=== PATIENT | male | born 1975 | race African-American/Black ===

== ENCOUNTER 2019-06-18 15:45 | Emergency (ER) | payer OTHER ==
[2019-06-18 16:32] VITALS: BP 124/82; PULSE 77; TEMP 97.2; BMI 32.4
--- NOTE | 2019-06-18 16:33 | PDOC ---
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
[2019-06-18] MEDS ORDERED: ERYTHROMYCIN 0.5% OPHTHALMIC OINTMENT 3.5 GM TUBE OU ONE (17:37)
[2019-06-18] MEDS ORDERED: ERYTHROMYCIN 0.5% OPHTHALMIC OINTMENT 3.5 GM TUBE ONE (17:40)
[2019-06-18] MEDS ORDERED: KETOROLAC TROMETHAMINE 30 MG/1 ML VIAL ONE (18:40)
[2019-06-18] MEDS ORDERED: KETOROLAC TROMETHAMINE 30 MG/1 ML VIAL IM ONE (18:40)
--- NOTE | 2019-06-18 18:46 | PDOC ---
History of Present Illness - General Chief Complaint: Cold Symptoms Stated Complaint: Cold Symptoms Time Seen by Provider: 06/18/19 16:28 History Source: Patient Exam Limitations: No Limitations - History of Present Illness Initial Comments: 06/18/19 18:41 43-year-old male with history of hypertension presents complaining of body aches , cough, subjective fever, chills, frontal headache and bilateral red eyes with itching x24 hours. 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 Denies shortness of breath, chest pain, abdominal pain, vomiting, diarrhea. Did not take any pain medication today. ROS: As above PE: GENERAL: well-appearing, NAD HEAD: NCAT EYES: Pupils equal, round and reactive to light, sclera anicteric, bilateral erythematous conjunctiva, clear discharge from bilateral eyes noted ENT: Bilateral normal ear canals, bilateral normal TMs, pharynx: no erythema, no exudate, uvula midline NECK: supple, no lymphadenopathy CHEST: nontender RESP: clear, no w/r/r CARDIO: rrr, no m/g/r ABD: +BS, soft, nontender, non distended BACK: no midline spinal ttp, no CVAT EXTREMITIES: Normal range of motion, no edema NEUROLOGICAL: Normal speech, normal gait SKIN: Warm, Dry Is this a multiple visit Asthma Patient?: No Past History - Past Medical History Allergies/Adverse Reactions: Allergies Allergy/AdvReac Type Severity Reaction Status Date / Time No Known Allergies Allergy Verified 06/18/19 16:29 Home Medications: Ambulatory Orders Erythromycin 0.5% Eye Ointment [Erythromycin 0.5% Eye Ointment -] 1 applic OU TID #1 tube 06/18/19 - Psycho Social/Smoking Cessation Hx Smoking Status: No Smoking History: Never smoked Number of Cigarettes Smoked Daily: 0 Information on smoking cessation initiated: No Hx Alcohol Use: No Drug/Substance Use Hx: No Substance Use Type: None Hx Substance Use Treatment: No *Physical Exam - Vital Signs Last Vital Signs Temp Pulse Resp BP Pulse Ox 97.2 F L 77 18 124/82 99 06/18/19 16:29 06/18/19 16:29 06/18/19 16:29 06/18/19 16:29 06/18/19 16:29 ED Treatment Course - Medications Given in the ED: ED Medications Discontinued Medications Generic Name Dose Route Start Last Admin Trade Name Freq PRN Reason Stop Dose Admin Erythromycin 1 applic 06/18/19 17:37 06/18/19 17:40 Erythromycin 0.5% Eye Ointment OU 06/18/19 17:38 1 applic ONCE ONE Administration Medical Decision Making - Medical Decision Making 06/18/19 18:43 43-year-old male with history of hypertension presents complaining of cough, subjective fever, chills, body aches, frontal headache, sore throat, bilateral redness to eyes x24 hours. Influenza swab negative IM Toradol 30 mg x 1 dose Note for work provided Discharge - Discharge Information Problems reviewed: Yes Clinical Impression/Diagnosis: URI (upper respiratory infection) Qualifiers: URI type: unspecified URI Qualified Code(s): J06.9 - Acute upper respiratory infection, unspecified Conjunctivitis Qualifiers: Conjunctivitis type: unspecified Laterality: bilateral Qualified Code(s): H10.9 - Unspecified conjunctivitis Condition: Stable Disposition: HOME - Admission No - Follow up/Referral Referrals: Narendra Wallace MD [Primary Care Provider] - - Patient Discharge Instructions Additional Instructions: Alternate between acetaminophen and ibuprofen every 6 hours Apply erythromycin ophthalmologic ointment to both eyes 3 times a day Follow-up with your primary care doctor Return to ED if chest pain, shortness of breath, vomiting, diarrhea or worsening symptoms - Post Discharge Activity Work/Back to School Note: Back to Work
== END 2019-06-18 18:47 | disposition home or self-care (01) ==
LOC: JERFT 15:45
PROC: 3E0233Z Introduction of Anti-inflammatory into Muscle, Percutaneous Approach (ICD-10-PCS; principal; 2019-06-18)
DX: J06.9 Acute upper respiratory infection, unspecified (principal); H10.33 Unspecified acute conjunctivitis, bilateral
CPT/HCPCS: 87804; 99284-25

== ENCOUNTER 2020-04-17 18:19 | Emergency (ER) | payer OTHER ==
[2020-04-17 18:43] VITALS: BP 129/74; PULSE 78; TEMP 98; BMI 32.5
[2020-04-17] MEDS ORDERED: ACETAMINOPHEN 500 MG TABLET (FP) PO ONE (19:50)
[2020-04-17] MEDS ORDERED: ACETAMINOPHEN 325 MG TABLET (FP) ONE (19:52)
== END 2020-04-17 20:52 | disposition home or self-care (01) ==
LOC: JER 18:19
DX: R51.9 Headache, unspecified (principal); H61.23 Impacted cerumen, bilateral
CPT/HCPCS: 93005; 93010; 99283-25

== ENCOUNTER 2020-12-27 07:13 | Emergency (ER) | payer OTHER ==
[2020-12-27 07:25] VITALS: BP 121/87; PULSE 62; TEMP 97.7; BMI 34.4
[2020-12-27] MEDS ORDERED: METOCLOPRAMIDE HCL INJECTION 10 MG/2 ML VIAL IVPB STA (07:50)
[2020-12-27] MEDS ORDERED: SODIUM CHLORIDE 1,000 ML IV ONE (07:50)
[2020-12-27] MEDS ORDERED: MECLIZINE HCL 25 MG TABLET (FP) PO ONE (07:52)
[2020-12-27] MEDS ORDERED: ACETAMINOPHEN 1000 MG/100 ML VIAL (NON FORMULARY) IVPB ONE (07:52)
[2020-12-27] MEDS ORDERED: ACETAMINOPHEN INJECTION 100 ML IVPB ONE (08:01)
[2020-12-27] MEDS ORDERED: METOCLOPRAMIDE HCL INJECTION 10 MG/2 ML VIAL ONE (08:01)
[2020-12-27] MEDS ORDERED: MECLIZINE HCL 25 MG TABLET (FP) ONE (08:01)
[2020-12-27 08:39] LABS: BASO % 0.7 % (0-2.0); EOS % 1.2 % (0-4.5); HEMATOCRIT 42.4 % (35.4-49); HEMOGLOBIN 14.8 GM/dL (11.7-16.9); LYMPH % 35.6 % (8-40); MCH 30.2 pg (25.7-33.7); MCHC 34.8 g/dl (32.0-35.9); MEAN CELL VOLUME 86.6 fl (80-96); MEAN PLT VOLUME 7.6 fl (7.5-11.1); MONO % 9.1 % (3.8-10.2); NEUT % 53.4 % (42.8-82.8); PLATELET COUNT 263 10^3/uL (134-434); RBC 4.89 M/mm3 (4.00-5.60); RDW 14.2 % (11.9-15.9); WHITE BLOOD COUNT 4.2 K/mm3 (4.0-10.0)
[2020-12-27 09:00] LABS: ALBUMIN 3.8 g/dl (3.4-5.0); BLOOD UREA NITROGEN 14.6 mg/dL (7-18); CALCIUM 8.6 mg/dL (8.5-10.1)
[2020-12-27 09:03] LABS: CREATININE 1.1 mg/dL (0.55-1.3)
[2020-12-27 09:05] LABS: BILIRUBIN,TOTAL 0.7 mg/dL (0.2-1); TOT PROT 7.2 g/dl (6.4-8.2)
[2020-12-27 10:24] LABS: MAGNESIUM 2.2 mg/dL (1.8-2.4)
== END 2020-12-27 11:13 | disposition home or self-care (01) ==
LOC: JER 07:13
PROC: 3E0333Z Introduction of Anti-inflammatory into Peripheral Vein, Percutaneous Approach (ICD-10-PCS; principal; 2020-12-27)
PROC: 3E033GC Introduction of Other Therapeutic Substance into Peripheral Vein, Percutaneous Approach (ICD-10-PCS; 2020-12-27)
PROC: 3E0337Z Introduction of Electrolytic and Water Balance Substance into Peripheral Vein, Percutaneous Approach (ICD-10-PCS; 2020-12-27)
DX: R42 Dizziness and giddiness (principal); R51.9 Headache, unspecified
CPT/HCPCS: 36415; 80053; 83735; 85025; 99284-25; C9803; J0131; U0003; U0005

== ENCOUNTER 2024-10-12 07:16 | Day surgery (SDC) | payer OTHER ==
[2024-09-28 10:13] VITALS: BMI 38.2
[2024-10-12 12:28] VITALS: TEMP 97.7
[2024-10-12 12:32] VITALS: RESP 18
[2024-10-12 13:14] VITALS: BP 112/77; PULSE 78
== END 2024-10-12 13:25 | disposition home or self-care (01) ==
LOC: JASU-ENDO 07:16
PROVIDERS: ATTEND Internal Medicine Gastroenterology
PROC: 0DBP8ZX Excision of Rectum, Via Natural or Artificial Opening Endoscopic, Diagnostic (ICD-10-PCS; principal; 2024-10-12 12:00)
DX: Z12.11 Encounter for screening for malignant neoplasm of colon (principal); D12.8 Benign neoplasm of rectum; K64.8 Other hemorrhoids
CPT/HCPCS: 88305-TC